=== PATIENT | male | born 1940 | race Two or more races ===

== ENCOUNTER 2017-04-12 09:32 | Emergency (ER) | payer OTHER ==
[2017-04-12 09:40] VITALS: BP 137/82; PULSE 93; TEMP 98; BMI 23.0
--- NOTE | 2017-04-12 10:08 | PDOC ---
Attending Attestation - Resident Resident Name: Abhilash Roberts - HPI HPI: 04/12/17 13:39 Pt presents to the ED complaining of the acute onset of vertigo at 8 am this morning. + nausea and 3 episodes of vomiting. Able to ambulate throughout entire episode. Now completely resolved. - Physicial Exam PE: 04/12/17 13:43 Neurologically intact and ambulatory with a steady gait. - Medical Decision Making 04/12/17 13:43 Pt presents to the ED complaining of tinnitus and vertigo that have both now spontaneously resolved. Neurologically intact. Very low suspicion for central vertigo, given tinitus, and normal neurologic exam. Will discharge home with rx for meclizine.
[2017-04-12 11:49] LABS: BASOPHIL 0.2 % (0-2.0); MCH 31.3 pg (25.7-33.7); MCHC 33.7 g/dl (32.0-35.9); MEAN CELL VOLUME 92.8 fl (80-96); MEAN PLT VOLUME 8.4 fl (7.5-11.1); NEUTROPHILS 90.7 % (42.8-82.8); PLATELET COUNT 183 K/MM3 (134-434); RDW 13.6 % (11.9-15.9); WHITE BLOOD COUNT 11.6 K/mm3 (4.0-10.0)
[2017-04-12 12:22] LABS: ALBUMIN 4.1 g/dl (3.4-5.0); ANION GAP 5 (8-16); CALCIUM 9.1 mg/dL (8.5-10.1); CO2 31 mmol/L (21-32); CREATININE 0.7 mg/dL (0.7-1.3); GLUCOSE,RANDOM 119 mg/dL (74-106); SGOT/AST 21 U/L (15-37); SGPT/ALT 27 U/L (12-78)
--- NOTE | 2017-04-12 12:23 | PDOC ---
History of Present Illness - General Chief Complaint: Lightheaded Stated Complaint: vertigo VOMITING Time Seen by Provider: 04/12/17 09:56 - History of Present Illness Initial Comments: 04/12/17 11:59 Mr. Cheema is a 76 yo male with h/o A-fib who presents with dizziness. He reports that this AM he woke up in bed and experienced an episode of vertigo with the ceiling spinning. He stepped out of bed and felt off balance. He reports that dizziness was sudden in onset, and lasted 2-3 hours. Since this morning he has vomited four times and denies blood in emesis. He has experienced tinnitus in left ear for 2 weeks duration, with an increase in intensity for past 2 days. He denies fevers/chills, chest pain, SOB, constipation/diarrhea, abdominal pain, weakness, LOC, urinary complaints, hearing loss. Past History - Past Medical History Allergies/Adverse Reactions: Allergies Allergy/AdvReac Type Severity Reaction Status Date / Time No Known Allergies Allergy Verified 04/12/17 09:36 Home Medications: Ambulatory Orders Diltiazem HCl [Cartia Xt] 120 mg PO DAILY 04/12/17 Meclizine HCl [Antivert -] 25 mg PO DAILY #30 tablet 04/12/17 Rivaroxaban [Xarelto] 1 each PO DAILY 04/12/17 Cardiac Disorders: Yes (? a.fib) - Psycho/Social/Smoking Cessation Hx Anxiety: No Suicidal Ideation: No Smoking History: Never smoked Have you smoked in the past 12 months: No Information on smoking cessation initiated: No Hx Alcohol Use: No Drug/Substance Use Hx: No Substance Use Type: None Review of Systems - Review of Systems Comments:: 04/12/17 13:09 GENERAL/CONSTITUTIONAL: No fever or chills. No weakness. HEAD, EYES, EARS, NOSE AND THROAT: No change in vision. No ear pain or discharge. No sore throat. CARDIOVASCULAR: No chest pain or shortness of breath RESPIRATORY: No cough, wheezing, or hemoptysis. GASTROINTESTINAL: + Nausea/vomitting, diarrhea or constipation. GENITOURINARY: No dysuria, frequency, or change in urination. MUSCULOSKELETAL: No joint or muscle swelling or pain. No neck or back pain. SKIN: No rash NEUROLOGIC: + dizziness. No headache, vertigo, loss of consciousness, or change in strength/sensation. ENDOCRINE: No increased thirst. No abnormal weight change HEMATOLOGIC/LYMPHATIC: No anemia, easy bleeding, or history of blood clots. ALLERGIC/IMMUNOLOGIC: No hives or skin allergy. *Physical Exam - Vital Signs Last Vital Signs Temp Pulse Resp BP Pulse Ox 98.0 F 93 H 18 137/82 100 04/12/17 09:38 04/12/17 09:38 04/12/17 09:38 04/12/17 09:38 04/12/17 09:38 - Physical Exam Comments: 04/12/17 13:10 GENERAL: Awake, alert, and fully oriented, in no acute distress HEAD: No signs of trauma, normocephalic, atraumatic EYES: PERRLA, EOMI, sclera anicteric, conjunctiva clear ENT: Left tympanic membrane without effusion, erythema, or bulging. Right tympanic membrane difficult to visualize d/t cerumen impaction. Auricles normal inspection, hearing grossly normal, nares patent, oropharynx clear without exudates. Moist mucosa NECK: Normal ROM, supple, no lymphadenopathy, JVD, or masses LUNGS: No distress, speaks full sentences, clear to auscultation bilaterally HEART: Irregular rhythm, normal rate, normal S1 and S2, no murmurs, rubs or gallops, peripheral pulses normal and equal bilaterally. ABDOMEN: Soft, nontender, normoactive bowel sounds. No guarding, no rebound. No masses EXTREMITIES: Normal inspection, Normal range of motion, no edema. No clubbing or cyanosis. NEUROLOGICAL: Normal CY, absent dysmetria on finger to nose and heel to duong. Cranial nerves II through XII grossly intact. Normal speech, normal tandem gait with absent signs of ataxia, no focal sensorimotor deficits SKIN: Warm, Dry, normal turgor, no rashes or lesions noted. ED Treatment Course - LABORATORY CBC & Chemistry Diagram: 04/12/17 11:40 04/12/17 11:40 - ADDITIONAL ORDERS Additional order review: 04/12/17 11:40 RBC 4.75 MCV 92.8 MCHC 33.7 RDW 13.6 MPV 8.4 Neutrophils % 90.7 H Lymphocytes % 7.0 L Monocytes % 2.1 L Eosinophils % 0.0 Basophils % 0.2 Medical Decision Making - Medical Decision Making 04/12/17 13:14 Mr. Cheema is a 76 yo male with h/o Afib who presents with dizziness. There is high suspicion of BPPV d/t positional nature of symptoms. Vertigo is most likely peripheral d/t sudden onset, and associated tinnitus. There is low suspicion for CVA; pt.lacks neurological deficits. No evidence of acute otitis media on physical exam. Pt. denies hearing loss; low suspicion for menieres disease. ED Course: CBC, CMP EKG Meclizine 25 mg *DC/Admit/Observation/Transfer Diagnosis at time of Disposition: BPPV (benign paroxysmal positional vertigo) Qualifiers: Laterality: unspecified laterality Qualified Code(s): H81.10 - Benign paroxysmal vertigo, unspecified ear - Discharge Dispostion Admit: No - Prescriptions Prescriptions: Meclizine HCl [Antivert -] 25 mg PO DAILY #30 tablet - Referrals Referrals: Antonio Abdalla MD [Primary Care Provider] - - Patient Instructions Printed Discharge Instructions: Benign Paroxysmal Positional Vertigo Additional Instructions: Take over the counter DEBROX Drops to disimpact the earwax in your ears. Thank you Mr. Cheema for being a patient patient. 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 - Attestations Physician Attestion: 04/12/17 13:32 I, Dr. Abhilash Roberts, attest that this document has been prepared under my direction and personally reviewed by me in its entirety. I further attest, that it accurately reflects all work, treatment, procedures and medical decision -making performed by me.
[2017-04-12 12:24] LABS: ALK PHOS 110 U/L (45-117); BILIRUBIN,TOTAL 0.8 mg/dL (0.2-1.0); TOT PROT 7.2 g/dl (6.4-8.2)
[2017-04-12] MEDS ORDERED: MECLIZINE HCL 25 MG TABLET (FP) PO ONE (12:48)
[2017-04-12] MEDS ORDERED: MECLIZINE HCL 25 MG TABLET (FP) ONE (12:59)
== END 2017-04-12 15:09 | disposition home or self-care (01) ==
LOC: JER 09:32
DX: H81.10 Benign paroxysmal vertigo, unspecified ear (principal); I48.91 Unspecified atrial fibrillation; Z79.01 Long term (current) use of anticoagulants
CPT/HCPCS: 36415; 80053; 85025; 99282-25

== ENCOUNTER 2020-04-01 17:26 | Emergency (ER) | payer OTHER ==
--- NOTE | 2020-04-01 17:46 | PDOC ---
Rapid Medical Evaluation Time Seen by Provider: 04/01/20 17:39 Medical Evaluation: Allergies Allergy/AdvReac Type Severity Reaction Status Date / Time No Known Allergies Allergy Verified 04/15/18 19:19 04/01/20 17:44 I performed a brief in-person evaluation of this patient. Pt is a 79 y/o male who presents to the ED with feeling weak today and having increased sweating. Pt denies any sob, cp, n/v/d/c. The patient has a h/o of Afib and is on xarelto and Diltiazem. Pertinent physical exam findings: speaking in full and complete sentences, nontoxic, no respiratory distress I have ordered the following: labs, ekg, cxr Patient to proceed to ED for further evaluation. Discharge Disposition - Diagnosis Weakness - Referrals - Patient Instructions - Post Discharge Activity
[2020-04-01 17:49] VITALS: TEMP 98; BMI 23.3
[2020-04-01 18:19] LABS: BASO % 0.5 % (0-2.0); EOS % 0.2 % (0-4.5); HEMATOCRIT 41.6 % (35.4-49); HEMOGLOBIN 13.9 GM/dL (11.7-16.9); LYMPH % 30.9 % (8-40); MCH 31.3 pg (25.7-33.7); MCHC 33.5 g/dl (32.0-35.9); MEAN CELL VOLUME 93.4 fl (80-96); MEAN PLT VOLUME 8.2 fl (7.5-11.1); NEUT % 55.4 % (42.8-82.8); PLATELET COUNT 162 K/MM3 (134-434); RBC 4.45 M/mm3 (4.00-5.60); RDW 13.5 % (11.9-15.9); WHITE BLOOD COUNT 3.6 K/mm3 (4.0-10.0)
[2020-04-01 18:32] LABS: INR 1.14 (0.83-1.09); PROTHROMBIN TIME (PATIENT) 13.5 SEC (9.7-13.0)
[2020-04-01 18:48] LABS: ALBUMIN 3.8 g/dl (3.4-5.0); ALK PHOS 96 U/L (45-117); ANION GAP 4 MMOL/L (8-16); BILIRUBIN,TOTAL 0.4 mg/dL (0.2-1); BLOOD UREA NITROGEN 22.3 mg/dL (7-18); CALCIUM 8.5 mg/dL (8.5-10.1); CHLORIDE 107 mmol/L (98-107); CO2 28 mmol/L (21-32); CREATININE 0.8 mg/dL (0.55-1.3); GLUCOSE,RANDOM 101 mg/dL (74-106); MAGNESIUM 2.3 mg/dL (1.8-2.4); POTASSIUM 4.8 mmol/L (3.5-5.1); SGOT/AST 29 U/L (15-37); SGPT/ALT 30 U/L (13-61); SODIUM 139 mmol/L (136-145); TOT PROT 6.6 g/dl (6.4-8.2)
--- NOTE | 2020-04-01 19:12 | PDOC ---
Attending Attestation - Resident Resident Name: JuanjoseHectorLisa - ED Attending Attestation I have performed the following: I have examined & evaluated the patient, The case was reviewed & discussed with the resident, I agree w/resident's findings & plan - HPI HPI: 04/01/20 19:59 Pt comes with 2 days of feeling unwell. He is worried that he has COVID. 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 [facility] No fam hx of disease. Pt seems very healthy. He is complaint with all his heart meds. He reports no N/V/D/dysuria. No fever or chills. No cough. Just weakness. Pt worked today and it was 90 degrees approachin 100F and humid today. Drank only OJ - Physicial Exam PE: 04/01/20 20:02 Normal exam Agree with resident - Medical Decision Making 04/01/20 20:02 Pt admits that he has a component of anxiety and that for this reason he is tachycardic. He also has had very little to eat and drink in the past 2 days. 04/01/20 21:22 First set of labs normal; rapid afib on initial EKG. HR after hydration is 80s. Pt will get a 2nd cardiac enzyme as well as UA. Both are pending; if normal he is ready for discharge 04/01/20 21:32 Pt's UA is normal Pt awaiting repeat trop. 04/01/20 22:44 2nd card enzyme normal; pt is ready for d/c home Discharge - Discharge Information Problems reviewed: Yes Clinical Impression/Diagnosis: Weakness, Dehydration Condition: Improved Disposition: HOME - Follow up/Referral Referrals: Wes Lira PA [Primary Care Provider] - - Patient Discharge Instructions Patient Printed Discharge Instructions: DI for Dehydration -- Adult Additional Instructions: You came in to the ED today because of "weakness" and "sweating." You were evaluated with a physical exam, an EKG, labs, and a CXR. Troponin, labs, EKG were normal. Follow up with your invoice clerk, or with our cardiology referral. Return to the ER immediately if you experience chest pain, SOB, lightheadedness, nausea, vomiting, or any other concerning symptoms. - Post Discharge Activity
--- NOTE | 2020-04-01 19:13 | PDOC ---
History of Present Illness <Nargis Singh - Last Filed: 04/01/20 22:45> - General History Source: Patient Exam Limitations: No Limitations - History of Present Illness Initial Comments: HPI: Patient is a 79 y/o with a PMH of AFIB presenting due to weakness and increased sweating that began around 11 a.m. 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 He states that he continued working the rest of the day. He denied any accompanying chest pain, palpitations, or SOB at the time. When he went home his told him he should come into the ED to be tested for COVID. He has no sick contacts. Additionally, he has not had anything to eat other than orange juice all day. Patient states that he feels better at this time and is not experiencing chest pain, SOB, palpitations. ROS: (+): Weakness (-): Chest pain, SOB, palpitations, blurry vision, dizziness, fever, chills, nausea, vomiting, cough, congestion, myalgias. PMH: Afib PSH: Denied Meds: Xarelto, Diltiazem PE: General: Patient is AAO X 3, in no acute distress Head: No signs of trauma, normocephalic Eyes: PERRL Lungs: No distress, speaks in full sentences, clear to auscultation bilaterally Cardiac: Afib. No murmurs appreciated. Neurological: CN 2-10 intact. Normal speech, no focal sensorimotor defecits. Extremities: No edema, no cyanosis. MDM: This is a 79 y/o male presenting to the ED due to weakness and sweating which occurred earlier this morning. Due to history of Afib and age, cardiac profile was ordered. Troponin came back normal. EKG showed Afib with RVR, and he was tachy at 103. He was given 1L of normal saline which brought him down to 85. A repeat troponin was also negative. HEART score of 2. The patient has a senior buyer who he last saw one year ago. He will follow up with him upon discharge. 04/01/20 22:51 04/01/20 23:15 <Lisa Sow - Last Filed: 04/01/20 23:18> - General Chief Complaint: Weakness Stated Complaint: COUGH/WEAKNESS Time Seen by Provider: 04/01/20 17:39 Past History <Nargis Singh - Last Filed: 04/01/20 22:45> - Medical History Cardiac Disorders: Yes (a.fib) COPD: No - Psycho-Social/Smoking History Smoking History: Never smoked Have you smoked in the past 12 months: No - Substance Abuse Hx (Audit-C & DAST Scrn) How often the patient has a drink containing alcohol: Never Score: In Men: 4 or > Positive; In Women: 3 or > Positive: 0 Screen Result (Pos requires Nsg. Audit-10AR): Negative <Lisa Sow - Last Filed: 04/01/20 23:18> - Medical History Allergies/Adverse Reactions: Allergies Allergy/AdvReac Type Severity Reaction Status Date / Time No Known Allergies Allergy Verified 04/01/20 17:45 Home Medications: Ambulatory Orders Diltiazem [Cardizem -] 0 mg PO HS 04/01/20 Rivaroxaban [Xarelto -] 20 mg PO DAILY 04/01/20 *Physical Exam - Vital Signs Last Vital Signs Temp Pulse Resp BP Pulse Ox 98 F 95 H 18 133/90 99 04/01/20 17:46 04/01/20 22:15 04/01/20 22:15 04/01/20 22:15 04/01/20 22:15 <Nargis Singh - Last Filed: 04/01/20 22:45> - Vital Signs Last Vital Signs Temp Pulse Resp BP Pulse Ox 98 F 122 H 18 119/87 99 04/01/20 17:46 04/01/20 17:46 04/01/20 17:46 04/01/20 17:46 04/01/20 17:50 <Lisa Sow - Last Filed: 04/01/20 23:18> Heart Score/ECG Review - History History: Slightly suspicious - Electrocardiogram EKG: Normal - Age Age: >/= 65 - Risk Factors Based on the list above the patient has:: No risk factors known - Troponin Troponin: </= normal limit - Score Heart Score - Total: 2 - ECG Intrepretation Comment:: Atrial fibrillation with RVR, Low voltage QRS Rate 106, QRS 72ms, QT/QTc 338/448 04/01/20 20:15 <Lisa Sow - Last Filed: 04/01/20 23:18> ED Treatment Course - LABORATORY CBC & Chemistry Diagram: 04/01/20 18:10 04/01/20 18:10 - ADDITIONAL ORDERS Additional order review: Laboratory Results 04/01/20 04/01/20 04/01/20 21:45 20:00 18:10 PT with INR INR PTT (Actin FS) Sodium 139 Potassium 4.8 Chloride 107 Carbon Dioxide 28 Anion Gap 4 L BUN 22.3 H Creatinine 0.8 Est GFR (CKD-EPI)AfAm 99.87 Est GFR (CKD-EPI)NonAf 86.17 Random Glucose 101 Calcium 8.5 Magnesium 2.3 Total Bilirubin 0.4 AST 29 ALT 30 Alkaline Phosphatase 96 Creatine Kinase 160 Creatine Kinase Index 1.6 CK-MB (CK-2) 2.6 Troponin I < 0.02 < 0.02 Total Protein 6.6 Albumin 3.8 Urine Color Yellow Urine Appearance Clear Urine pH 7.0 Ur Specific [place] 1.024 Urine Protein Negative Urine Glucose (UA) Negative Urine Ketones Trace H Urine Blood Negative Urine Nitrite Negative Urine Bilirubin Negative Urine Urobilinogen 1.0 Ur Leukocyte Esterase Negative 04/01/20 18:10 PT with INR 13.50 H INR 1.14 H PTT (Actin FS) 33.0 Sodium Potassium Chloride Carbon Dioxide Anion Gap BUN Creatinine Est GFR (CKD-EPI)AfAm Est GFR (CKD-EPI)NonAf Random Glucose Calcium Magnesium Total Bilirubin AST ALT Alkaline Phosphatase Creatine Kinase Creatine Kinase Index CK-MB (CK-2) Troponin I Total Protein Albumin Urine Color Urine Appearance Urine pH Ur Specific [place] Urine Protein Urine Glucose (UA) Urine Ketones Urine Blood Urine Nitrite Urine Bilirubin Urine Urobilinogen Ur Leukocyte Esterase 04/01/20 18:10 RBC 4.45 MCV 93.4 MCHC 33.5 RDW 13.5 MPV 8.2 Neutrophils % 55.4 D Lymphocytes % 30.9 D Monocytes % 13.0 H D Eosinophils % 0.2 D Basophils % 0.5 - Medications Given in the ED: ED Medications Discontinued Medications Generic Name Dose Route Start Last Admin Trade Name Freq PRN Reason Stop Dose Admin Sodium Chloride 500 mls @ 500 mls/hr 04/01/20 19:59 04/01/20 20:26 Normal Saline - IV 04/01/20 20:58 500 mls/hr ASDIR STA Administration <Nargis Singh - Last Filed: 04/01/20 22:45> - LABORATORY CBC & Chemistry Diagram: 04/01/20 18:10 04/01/20 18:10 - ADDITIONAL ORDERS Additional order review: Laboratory Results 04/01/20 04/01/20 18:10 18:10 PT with INR 13.50 H INR 1.14 H PTT (Actin FS) 33.0 Sodium 139 Potassium 4.8 Chloride 107 Carbon Dioxide 28 Anion Gap 4 L BUN 22.3 H Creatinine 0.8 Est GFR (CKD-EPI)AfAm 99.87 Est GFR (CKD-EPI)NonAf 86.17 Random Glucose 101 Calcium 8.5 Magnesium 2.3 Total Bilirubin 0.4 AST 29 ALT 30 Alkaline Phosphatase 96 Creatine Kinase 160 Creatine Kinase Index 1.6 CK-MB (CK-2) 2.6 Troponin I < 0.02 Total Protein 6.6 Albumin 3.8 04/01/20 18:10 RBC 4.45 MCV 93.4 MCHC 33.5 RDW 13.5 MPV 8.2 Neutrophils % 55.4 D Lymphocytes % 30.9 D Monocytes % 13.0 H D Eosinophils % 0.2 D Basophils % 0.5 <Lisa Sow - Last Filed: 04/01/20 23:18> Discharge - Discharge Information Problems reviewed: Yes - Admission No <Nargis Singh - Last Filed: 04/01/20 22:45> <Lisa Sow - Last Filed: 04/01/20 23:18> - Discharge Information Clinical Impression/Diagnosis: Weakness, Dehydration Condition: Improved Disposition: HOME - Follow up/Referral Referrals: Wes Lira PA [Primary Care Provider] - - Patient Discharge Instructions Patient Printed Discharge Instructions: DI for Dehydration -- Adult Additional Instructions: You came in to the ED today because of "weakness" and "sweating." You were evaluated with a physical exam, an EKG, labs, and a CXR. Troponin, labs, EKG were normal. Follow up with your senior buyer, or with our cardiology referral. Return to the ER immediately if you experience chest pain, SOB, lightheadedness, nausea, vomiting, or any other concerning symptoms. - Post Discharge Activity
[2020-04-01] MEDS ORDERED: SODIUM CHLORIDE 500 ML IV STA (19:59)
[2020-04-01 21:20] LABS: URINE APPEARANCE CLEAR; URINE BILIRUBIN NEGATIVE (NEGATIVE); URINE COLOR YELLOW; URINE GLUCOSE (UA) NEGATIVE (NEGATIVE); URINE KETONE TRACE (NEGATIVE); URINE LEUK ESTERASE NEGATIVE (NEGATIVE); URINE NITRITE NEGATIVE (NEGATIVE); URINE PROTEIN NEGATIVE (NEGATIVE)
[2020-04-01 22:18] VITALS: PULSE 95
[2020-04-01 22:19] VITALS: BP 133/90
--- NOTE | 2020-04-03 14:11 | EKG ---
Test Reason : Blood Pressure : / mmHG Vent. Rate : 106 BPM Atrial Rate : 098 BPM P-R Int : 000 ms QRS Dur : 072 ms QT Int : 338 ms P-R-T Axes : 000 013 024 degrees QTc Int : 448 ms ATRIAL FIBRILLATION WITH RAPID VENTRICULAR RESPONSE LOW VOLTAGE QRS ABNORMAL ECG WHEN COMPARED WITH ECG OF 01-APR-2020 18:20, NO SIGNIFICANT CHANGE WAS FOUND Confirmed by KAIN ALEMAN MD ([id number]) on 04/03/2020 2:11:03 PM Referred By: Confirmed By:KAIN ALEMAN MD
--- NOTE | 2020-04-03 14:14 | EKG ---
Test Reason : Blood Pressure : / mmHG Vent. Rate : 093 BPM Atrial Rate : 092 BPM P-R Int : 000 ms QRS Dur : 072 ms QT Int : 336 ms P-R-T Axes : 000 -06 015 degrees QTc Int : 417 ms ATRIAL FIBRILLATION LOW VOLTAGE QRS ABNORMAL ECG NO PREVIOUS ECGS AVAILABLE Confirmed by KAIN ALEMAN MD ([id number]) on 04/03/2020 2:14:06 PM Referred By: Confirmed By:KAIN ALEMAN MD
== END 2020-04-01 22:55 | disposition home or self-care (01) ==
LOC: JER 17:26
PROC: 3E0337Z Introduction of Electrolytic and Water Balance Substance into Peripheral Vein, Percutaneous Approach (ICD-10-PCS; principal; 2020-04-01)
DX: R53.1 Weakness (principal); E86.0 Dehydration
CPT/HCPCS: 36415; 71046-TC-FY; 80053; 81003; 82550; 82553; 83735; 84484; 85025; 85610; 85730; 87086; 93005; 93010; 99285-25

== ENCOUNTER 2022-04-02 17:16 | Inpatient (IN) | payer OTHER ==
[2022-04-02] MEDS ORDERED: SODIUM CHLORIDE 0.9% 500 ML INFUS.BAG IV ONE (18:00)
[2022-04-02] MEDS ORDERED: ACETAMINOPHEN 1000 MG/100 ML BAG IVPB ONE (18:00)
[2022-04-02] MEDS ORDERED: ACETAMINOPHEN INJECTION 100 ML IVPB ONE ×2 (18:08→23:22)
[2022-04-02] MEDS ORDERED: MAG HYDROX/AL HYDROX/SIMETH 30 ML UNIT-DOSE CUP PO ONE (18:26)
[2022-04-02] MEDS ORDERED: FAMOTIDINE 20 MG/50 ML IVPB 20 MG/50 ML MG IVPB ONE ×2 (18:26→18:37)
[2022-04-02] MEDS ORDERED: MAG HYDROX/AL HYDROX/SIMETH 30 ML UNIT-DOSE CUP ONE (18:37)
[2022-04-02 18:51] LABS: BASO % 0.2 % (0-2.0); EOS % 0.8 % (0-4.5); HEMATOCRIT 40.5 % (35.4-49); HEMOGLOBIN 13.7 GM/dL (11.7-16.9); LYMPH % 20.1 % (8-40); MCH 31.2 pg (25.7-33.7); MCHC 33.9 g/dl (32.0-35.9); MEAN CELL VOLUME 91.9 fl (80-96); MEAN PLT VOLUME 8.1 fl (7.5-11.1); MONO % 6.3 % (3.8-10.2); NEUT % 72.6 % (42.8-82.8); PLATELET COUNT 211 10^3/uL (134-434); RDW 13.4 % (11.9-15.9); WHITE BLOOD COUNT 9.5 K/mm3 (4.0-10.0)
[2022-04-02 18:53] LABS: CALCIUM 8.8 mg/dL (8.5-10.1)
[2022-04-02 18:54] LABS: ALBUMIN 3.6 g/dl (3.4-5.0); BLOOD UREA NITROGEN 25.1 mg/dL (7-18)
[2022-04-02 18:57] LABS: CREATININE 0.8 mg/dL (0.55-1.3)
[2022-04-02 18:58] LABS: BILIRUBIN,TOTAL 0.4 mg/dL (0.2-1); TOT PROT 6.4 g/dl (6.4-8.2)
[2022-04-02 19:30] LABS: VENOUS BASE EXCESS 0.2 mmol/L (-2-2); VENOUS O2 SATURATION 59.4 % (70-80); VENOUS PCO2 49.5 mmHg (38-52); VENOUS PH 7.348 (7.310-7.410)
[2022-04-02 20:44] LABS: EPI CELLS 0 /uL (0-25.1); HYALINE CASTS 0 /uL (0-3.1); PH,URINE 7.5 (5.0-8.0); URINE APPEARANCE CLEAR; URINE BACTERIA 0 /uL (0-1359); URINE BILIRUBIN NEGATIVE (NEGATIVE); URINE COLOR YELLOW; URINE GLUCOSE (UA) NEGATIVE (NEGATIVE); URINE KETONE NEGATIVE (NEGATIVE); URINE LEUK ESTERASE NEGATIVE (NEGATIVE); URINE NITRITE NEGATIVE (NEGATIVE); URINE PROTEIN NEGATIVE (NEGATIVE); URINE RBC 38 /uL (0-23.9); URINE UROBILINOGEN 0.2 mg/dL (0.2-1.0); URINE WBC 1 /uL (0-25.8)
[2022-04-02] MEDS: ACETAMINOPHEN 1000 MG/100 ML BAG IVPB PRN (23:27)
[2022-04-02] MEDS ORDERED: FAMOTIDINE 20 MG TABLET PO PRN (23:39)
[2022-04-03] MEDS ORDERED: POLYETHYLENE GLYCOL (HEALTHYLAX) 3350 17 GM PACKET ONE (00:14)
[2022-04-03] MEDS: POLYETHYLENE GLYCOL (HEALTHYLAX) 3350 17 GM PACKET PO SCH ×4 (00:19→22:09)
[2022-04-03] MEDS: ACETAMINOPHEN 1000 MG/100 ML BAG IVPB PRN ×2 (06:04→16:53)
[2022-04-03] MEDS: INSULIN SLIDING SCALE (NOVOLOG) 1 VIAL SQ SCH ×4 (06:05→22:09)
[2022-04-03 06:45] VITALS: BMI 23.1
[2022-04-03 09:10] LABS: BASO % 0.2 % (0-2.0); EOS % 0.1 % (0-4.5); HEMATOCRIT 41.1 % (35.4-49); HEMOGLOBIN 14.2 GM/dL (11.7-16.9); MCH 31.8 pg (25.7-33.7); MCHC 34.6 g/dl (32.0-35.9); MEAN PLT VOLUME 7.9 fl (7.5-11.1); MONO % 6.1 % (3.8-10.2); NEUT % 80.6 % (42.8-82.8); PLATELET COUNT 215 10^3/uL (134-434); RBC 4.47 M/mm3 (4.00-5.60); RDW 13.4 % (11.9-15.9); WHITE BLOOD COUNT 10.8 K/mm3 (4.0-10.0)
[2022-04-03 09:29] LABS: CALCIUM 8.8 mg/dL (8.5-10.1)
[2022-04-03 09:30] LABS: ALBUMIN 3.6 g/dl (3.4-5.0); BLOOD UREA NITROGEN 13.5 mg/dL (7-18); MAGNESIUM 2.3 mg/dL (1.8-2.4)
[2022-04-03 09:33] LABS: CREATININE 0.7 mg/dL (0.55-1.3); PHOSPHOROUS 2.9 mg/dL (2.5-4.9)
[2022-04-03 09:34] LABS: TOT PROT 6.5 g/dl (6.4-8.2)
[2022-04-03 09:35] LABS: BILIRUBIN,TOTAL 1.2 mg/dL (0.2-1)
[2022-04-03] MEDS ORDERED: RIVAROXABAN 20 MG TABLET PO SCH (18:00)
[2022-04-04] MEDS: INSULIN SLIDING SCALE (NOVOLOG) 1 VIAL SQ SCH ×4 (06:32→21:27)
[2022-04-04] MEDS: POLYETHYLENE GLYCOL (HEALTHYLAX) 3350 17 GM PACKET PO SCH ×3 (06:33→21:27)
[2022-04-04 09:24] LABS: BASO % 0.1 % (0-2.0); EOS % 0.1 % (0-4.5); HEMATOCRIT 40.7 % (35.4-49); HEMOGLOBIN 13.9 GM/dL (11.7-16.9); LYMPH % 10.8 % (8-40); MCH 31.2 pg (25.7-33.7); MCHC 34.1 g/dl (32.0-35.9); MEAN CELL VOLUME 91.7 fl (80-96); MONO % 7.7 % (3.8-10.2); NEUT % 81.3 % (42.8-82.8); PLATELET COUNT 191 10^3/uL (134-434); RBC 4.44 M/mm3 (4.00-5.60); RDW 13.2 % (11.9-15.9); WHITE BLOOD COUNT 13.2 K/mm3 (4.0-10.0)
[2022-04-04 09:48] LABS: BLOOD UREA NITROGEN 12.3 mg/dL (7-18); CALCIUM 8.7 mg/dL (8.5-10.1)
[2022-04-04 09:52] LABS: CREATININE 0.9 mg/dL (0.55-1.3)
[2022-04-04] MEDS ORDERED: INSULIN (LEVEMIR) 100 UNITS/ML UNITS SQ ONE (09:57)
[2022-04-04] MEDS ORDERED: PEG 3350/NA SULF BICARB CL/KCL 4000 ML SOLN.RECON PO ONE (10:00)
[2022-04-04] MEDS: FAMOTIDINE 20 MG TABLET PO SCH ×2 (10:53→21:27)
[2022-04-04] MEDS ORDERED: INSULIN (NOVOLOG) ASPART 100 UNITS/ML 10ML VIAL ONE (16:50)
[2022-04-04] MEDS: FINASTERIDE 5 MG TABLET (FP) PO SCH (16:57)
[2022-04-04] MEDS ORDERED: BISACODYL 5 MG TABLET.DR (FP) PO ONE (20:00)
[2022-04-04] MEDS: TAMSULOSIN HCL 0.4 MG CAP PO SCH (21:27)
[2022-04-05] MEDS: POLYETHYLENE GLYCOL (HEALTHYLAX) 3350 17 GM PACKET PO SCH ×3 (06:18→22:02)
[2022-04-05] MEDS: INSULIN SLIDING SCALE (NOVOLOG) 1 VIAL SQ SCH ×4 (06:37→22:00)
[2022-04-05] MEDS: FAMOTIDINE 20 MG TABLET PO SCH ×3 (08:42→22:02)
[2022-04-05] MEDS: TAMSULOSIN HCL 0.4 MG CAP PO SCH ×3 (08:42→22:02)
[2022-04-05] MEDS: FINASTERIDE 5 MG TABLET (FP) PO SCH ×2 (08:43→09:55)
[2022-04-05 09:00] LABS: INR 1.12 (0.83-1.09); PROTHROMBIN TIME (PATIENT) 12.9 SEC (9.7-13.0)
[2022-04-05 09:03] LABS: BASO % 0.2 % (0-2.0); EOS % 0.1 % (0-4.5); HEMATOCRIT 41.4 % (35.4-49); HEMOGLOBIN 13.9 GM/dL (11.7-16.9); LYMPH % 11.8 % (8-40); MCH 31.3 pg (25.7-33.7); MCHC 33.7 g/dl (32.0-35.9); MEAN CELL VOLUME 92.9 fl (80-96); MEAN PLT VOLUME 8.6 fl (7.5-11.1); NEUT % 78.9 % (42.8-82.8); PLATELET COUNT 193 10^3/uL (134-434); RBC 4.46 M/mm3 (4.00-5.60); RDW 13.6 % (11.9-15.9); WHITE BLOOD COUNT 12.5 K/mm3 (4.0-10.0)
[2022-04-05 09:14] LABS: ALBUMIN 3.3 g/dl (3.4-5.0); BLOOD UREA NITROGEN 19.6 mg/dL (7-18); MAGNESIUM 2.3 mg/dL (1.8-2.4)
[2022-04-05 09:16] LABS: BILIRUBIN,TOTAL 1.6 mg/dL (0.2-1); TOT PROT 6.5 g/dl (6.4-8.2)
[2022-04-05] MEDS ORDERED: ETOMIDATE 20 MG/10 ML AMPUL IVPUSH ONE (10:14)
[2022-04-05] MEDS: RIVAROXABAN 20 MG TABLET PO SCH (12:40)
[2022-04-05 14:11] LABS: EPI CELLS 6 /uL (0-25.1); HYALINE CASTS 22 /uL (0-3.1); PH,URINE 5.5 (5.0-8.0); URINE APPEARANCE CLOUDY; URINE BACTERIA 10 /uL (0-1359); URINE BILIRUBIN 1+ (NEGATIVE); URINE COLOR ORANGE; URINE GLUCOSE (UA) NEGATIVE (NEGATIVE); URINE KETONE 2+ (NEGATIVE); URINE LEUK ESTERASE 2+ (NEGATIVE); URINE NITRITE NEGATIVE (NEGATIVE); URINE PROTEIN 2+ (NEGATIVE); URINE RBC 3006 /uL (0-23.9); URINE UROBILINOGEN 0.2 mg/dL (0.2-1.0); URINE WBC 613 /uL (0-25.8)
[2022-04-06] MEDS: POLYETHYLENE GLYCOL (HEALTHYLAX) 3350 17 GM PACKET PO SCH ×2 (05:25→14:57)
[2022-04-06] MEDS: INSULIN SLIDING SCALE (NOVOLOG) 1 VIAL SQ SCH ×3 (06:38→17:17)
[2022-04-06] MEDS: FAMOTIDINE 20 MG TABLET PO SCH (10:11)
[2022-04-06] MEDS: FINASTERIDE 5 MG TABLET (FP) PO SCH (10:11)
[2022-04-06] MEDS: TAMSULOSIN HCL 0.4 MG CAP PO SCH (10:11)
[2022-04-06 10:17] VITALS: PULSE 110
[2022-04-06 10:56] LABS: BASO % 0.1 % (0-2.0); EOS % 0.7 % (0-4.5); HEMATOCRIT 33.5 % (35.4-49); HEMOGLOBIN 11.6 GM/dL (11.7-16.9); LYMPH % 11.3 % (8-40); MCH 31.7 pg (25.7-33.7); MCHC 34.5 g/dl (32.0-35.9); MEAN CELL VOLUME 91.9 fl (80-96); MEAN PLT VOLUME 8.1 fl (7.5-11.1); MONO % 9.1 % (3.8-10.2); NEUT % 78.8 % (42.8-82.8); PLATELET COUNT 191 10^3/uL (134-434); RBC 3.65 M/mm3 (4.00-5.60); RDW 13.7 % (11.9-15.9); WHITE BLOOD COUNT 8.6 K/mm3 (4.0-10.0)
[2022-04-06] MEDS: RIVAROXABAN 20 MG TABLET PO SCH (11:05)
[2022-04-06 11:08] LABS: BLOOD UREA NITROGEN 24.4 mg/dL (7-18); MAGNESIUM 2.1 mg/dL (1.8-2.4)
[2022-04-06 11:11] LABS: CREATININE 0.6 mg/dL (0.55-1.3)
[2022-04-06 11:12] LABS: BILIRUBIN,TOTAL 0.6 mg/dL (0.2-1)
[2022-04-06 11:13] LABS: TOT PROT 5.2 g/dl (6.4-8.2)
[2022-04-06 11:14] LABS: ALBUMIN 2.4 g/dl (3.4-5.0)
[2022-04-06 14:59] VITALS: BP 109/61; TEMP 99.3
== END 2022-04-06 20:09 | disposition home or self-care (01) | DRG 392 ==
LOC: JER 17:16 → JERBED 20:52 → J8W 04-03 03:22
PROVIDERS: ADMIT Internal Medicine; ATTEND Internal Medicine
PROC: 0DB58ZX Excision of Esophagus, Via Natural or Artificial Opening Endoscopic, Diagnostic (ICD-10-PCS; 2022-04-05)
PROC: 0DB98ZX Excision of Duodenum, Via Natural or Artificial Opening Endoscopic, Diagnostic (ICD-10-PCS; 2022-04-05)
PROC: 0DJD8ZZ Inspection of Lower Intestinal Tract, Via Natural or Artificial Opening Endoscopic (ICD-10-PCS; 2022-04-05)
PROC: 0DB78ZX Excision of Stomach, Pylorus, Via Natural or Artificial Opening Endoscopic, Diagnostic (ICD-10-PCS; principal; 2022-04-05 11:00)
DX: K59.00 Constipation, unspecified (principal); N13.30 Unspecified hydronephrosis; N40.0 Benign prostatic hyperplasia without lower urinary tract symptoms; R33.9 Retention of urine, unspecified; R10.9 Unspecified abdominal pain; E11.9 Type 2 diabetes mellitus without complications; I48.91 Unspecified atrial fibrillation; D72.829 Elevated white blood cell count, unspecified; K29.70 Gastritis, unspecified, without bleeding; K57.90 Diverticulosis of intestine, part unspecified, without perforation or abscess without bleeding; K64.8 Other hemorrhoids
CPT/HCPCS: 36415; 71045-TC-FY; 71046-TC-FY; 74174-TC; 74176-TC; 80048; 80053; 81003; 82803; 82962; 83036; 83605; 83690; 83735; 84100; 84153; 84484; 85025; 85610; 87040; 87086; 88305-TC; 93005; 93010; 99285-25; C9803-CS; U0003; U0005

== ENCOUNTER 2023-09-09 08:19 | Emergency (ER) | payer OTHER ==
[2023-09-09 08:49] VITALS: TEMP 97.7; BMI 49.6
[2023-09-09] MEDS ORDERED: ACETAMINOPHEN 325 MG TABLET (FP) ONE (09:51)
[2023-09-09] MEDS ORDERED: guaiFENesin/D-METHORPHAN HB 10 ML UNIT-DOSE CUPS ONE (09:51)
[2023-09-09] MEDS: ACETAMINOPHEN 325 MG TABLET (FP) PO ONE (09:52)
[2023-09-09] MEDS: guaiFENesin 200 MG/10 ML 10 ML UNIT-DOSE CUPS PO ONE (09:52)
[2023-09-09 10:57] VITALS: RESP 16
[2023-09-09] MEDS: SODIUM CHLORIDE 0.9% 500 ML INFUS.BAG IV ONE (11:05)
[2023-09-09 11:14] LABS: BASO % 0.2 % (0-2.0); EOS % 0.1 % (0-4.5); HEMATOCRIT 44.7 % (35.4-49); HEMOGLOBIN 14.9 GM/dL (11.7-16.9); LYMPH % 11.8 % (8-40); MCH 30.7 pg (25.7-33.7); MCHC 33.4 g/dl (32.0-35.9); MEAN CELL VOLUME 91.9 fl (80-96); MEAN PLT VOLUME 7.2 fl (7.5-11.1); MONO % 6.5 % (3.8-10.2); NEUT % 81.4 % (42.8-82.8); PLATELET COUNT 314 10^3/uL (134-434); RBC 4.87 M/mm3 (4.00-5.60); RDW 13.4 % (11.9-15.9); WHITE BLOOD COUNT 10.9 K/mm3 (4.0-10.0)
[2023-09-09] MEDS ORDERED: dilTIAZem HCL 125 MG/25 ML - 25 ML VIAL ONE (11:14)
[2023-09-09] MEDS: dilTIAZem HCL 50 MG/10 ML - 10 ML VIAL IVPUSH ONE (11:19)
[2023-09-09] MEDS ORDERED: dilTIAZem HCL 60 MG TABLET ONE (11:23)
[2023-09-09] MEDS: dilTIAZem HCL 60 MG TABLET PO ONE (11:26)
[2023-09-09 12:05] LABS: ALBUMIN 3.4 g/dl (3.4-5.0); MAGNESIUM 2.3 mg/dL (1.8-2.4)
[2023-09-09 12:06] LABS: BLOOD UREA NITROGEN 33.4 mg/dL (7-18)
[2023-09-09 12:08] LABS: CREATININE 1.1 mg/dL (0.55-1.3)
[2023-09-09 12:10] LABS: BILIRUBIN,TOTAL 0.7 mg/dL (0.2-1); TOT PROT 7.3 g/dl (6.4-8.2)
[2023-09-09 13:06] VITALS: BP 118/80; PULSE 104
[2023-09-09] MEDS ORDERED: AZITHROMYCIN 500 MG TABLET ONE (13:07)
[2023-09-09] MEDS: AZITHROMYCIN 250 MG TABLET PO ONE (13:12)
== END 2023-09-09 13:27 | disposition home or self-care (01) ==
LOC: JER 08:19
PROC: 3E033GC Introduction of Other Therapeutic Substance into Peripheral Vein, Percutaneous Approach (ICD-10-PCS; principal; 2023-09-09)
DX: R09.81 Nasal congestion (principal); R05.9 Cough, unspecified; R19.7 Diarrhea, unspecified; R11.10 Vomiting, unspecified; B97.4 Respiratory syncytial virus as the cause of diseases classified elsewhere; Z86.79 Personal history of other diseases of the circulatory system; Z20.822 Contact with and (suspected) exposure to COVID-19
CPT/HCPCS: 0241U-QW; 36415; 71045-TC-FY; 80053; 82962; 83735; 84443; 84484; 85025; 93005; 93010; 96374; 99285-25

== ENCOUNTER 2024-01-23 10:00 | Emergency (ER) | payer OTHER ==
[2024-01-23 10:07] VITALS: BP 136/73; PULSE 92; RESP 20; TEMP 98.1; BMI 23.8
[2024-01-23] MEDS ORDERED: ACETAMINOPHEN 325 MG TABLET (FP) ONE (11:26)
[2024-01-23] MEDS: ACETAMINOPHEN 325 MG TABLET (FP) PO ONE (11:28)
== END 2024-01-23 12:16 | disposition home or self-care (01) ==
LOC: JERFT 10:00
DX: S99.922A Unspecified injury of left foot, initial encounter (principal); V03.10XA Pedestrian on foot injured in collision with car, pick-up truck or van in traffic accident, initial encounter; Y92.513 Shop (commercial) as the place of occurrence of the external cause
CPT/HCPCS: 73610-TC-LT-FY; 73630-TC-LT; 99283-25

== ENCOUNTER 2024-06-30 08:52 | Emergency (ER) | payer OTHER ==
[2024-06-30 09:11] VITALS: BMI 21.4
[2024-06-30] MEDS: SODIUM CHLORIDE 0.9% 500 ML INFUS.BAG IV ONE (09:35)
[2024-06-30 09:58] LABS: BASO % 0.2 % (0-2.0); EOS % 0.5 % (0-4.5); HEMATOCRIT 40.6 % (35.4-49); HEMOGLOBIN 13.9 GM/dL (11.7-16.9); LYMPH % 15.1 % (8-40); MCH 31.6 pg (25.7-33.7); MCHC 34.2 g/dl (32.0-35.9); MEAN CELL VOLUME 92.5 fl (80-96); MONO % 12.2 % (3.8-10.2); PLATELET COUNT 210 10^3/uL (134-434); RBC 4.39 M/mm3 (4.00-5.60); RDW 14.2 % (11.9-15.9); WHITE BLOOD COUNT 6.9 K/mm3 (4.0-10.0)
[2024-06-30 10:26] LABS: CALCIUM 8.7 mg/dL (8.5-10.1)
[2024-06-30 10:27] LABS: BLOOD UREA NITROGEN 17.7 mg/dL (7-18)
[2024-06-30 10:30] LABS: CREATININE 0.9 mg/dL (0.55-1.3)
[2024-06-30 10:31] LABS: BILIRUBIN,TOTAL 1.3 mg/dL (0.2-1); TOT PROT 5.8 g/dl (6.4-8.2)
[2024-06-30 10:34] LABS: N-TERMINAL BNP 555.3 pg/ml (5-450)
[2024-06-30 12:56] LABS: PH,URINE 6.5 (5.0-8.0); URINE APPEARANCE CLEAR; URINE BILIRUBIN NEGATIVE (NEGATIVE); URINE COLOR YELLOW; URINE GLUCOSE (UA) NEGATIVE (NEGATIVE); URINE KETONE NEGATIVE (NEGATIVE); URINE LEUK ESTERASE NEGATIVE (NEGATIVE); URINE NITRITE NEGATIVE (NEGATIVE); URINE PROTEIN NEGATIVE (NEGATIVE)
[2024-06-30 12:58] LABS: HIV INTERPRETATION NEGATIVE (NEGATIVE)
[2024-06-30 13:34] VITALS: BP 128/65; PULSE 70; RESP 17; TEMP 97.8
== END 2024-06-30 13:30 | disposition home or self-care (01) ==
LOC: JER 08:52
DX: E86.0 Dehydration (principal); R42 Dizziness and giddiness; R55 Syncope and collapse; R53.1 Weakness
CPT/HCPCS: 36415; 71046-TC-FY; 80053; 81003; 83880; 84484; 85025; 86803; 87086; 87389; 93005; 93010; 99285-25

== ENCOUNTER 2024-07-15 13:26 | Observation (INO) | payer OTHER ==
[2024-07-15] MEDS: SODIUM CHLORIDE 1,000 ML IV SCH (15:10)
[2024-07-15 15:16] LABS: BASO % 0.5 % (0-2.0); EOS % 0.2 % (0-4.5); HEMATOCRIT 40.5 % (35.4-49); HEMOGLOBIN 13.8 GM/dL (11.7-16.9); LYMPH % 10.3 % (8-40); MCH 31.4 pg (25.7-33.7); MCHC 34.1 g/dl (32.0-35.9); MEAN CELL VOLUME 92.2 fl (80-96); MEAN PLT VOLUME 7.3 fl (7.5-11.1); MONO % 3.3 % (3.8-10.2); NEUT % 85.7 % (42.8-82.8); PLATELET COUNT 233 10^3/uL (134-434); RBC 4.39 M/mm3 (4.00-5.60); RDW 13.8 % (11.9-15.9); WHITE BLOOD COUNT 6.8 K/mm3 (4.0-10.0)
[2024-07-15 15:41] LABS: ACTIVATED PTT 35.7 SECONDS (25.2-36.5); INR 1.51 (0.83-1.09); PROTHROMBIN TIME (PATIENT) 16.9 SEC (9.7-13.0)
[2024-07-15 15:43] LABS: POTASSIUM 4.6 mmol/L (3.5-5.1)
[2024-07-15 15:46] LABS: ALBUMIN 3.5 g/dl (3.4-5.0); CALCIUM 8.8 mg/dL (8.5-10.1)
[2024-07-15 15:48] LABS: BLOOD UREA NITROGEN 22.2 mg/dL (7-18)
[2024-07-15 15:50] LABS: CREATININE 0.8 mg/dL (0.55-1.3)
[2024-07-15 15:51] LABS: TOT PROT 6.5 g/dl (6.4-8.2)
[2024-07-15 15:52] LABS: BILIRUBIN,TOTAL 0.7 mg/dL (0.2-1)
[2024-07-16 02:17] VITALS: BMI 22.0
[2024-07-16] MEDS: MECLIZINE HCL 25 MG TABLET (FP) PO SCH (06:35)
[2024-07-16] MEDS: ASPIRIN 325 MG ENTERIC COATED TABLET (FP) PO ONE (06:35)
[2024-07-16 07:44] LABS: HEMATOCRIT 39.4 % (35.4-49); HEMOGLOBIN 13.2 GM/dL (11.7-16.9); MCH 31.2 pg (25.7-33.7); MCHC 33.6 g/dl (32.0-35.9); MEAN CELL VOLUME 92.8 fl (80-96); MEAN PLT VOLUME 7.6 fl (7.5-11.1); PLATELET COUNT 227 10^3/uL (134-434); RBC 4.24 M/mm3 (4.00-5.60); RDW 13.8 % (11.9-15.9); WHITE BLOOD COUNT 5.1 K/mm3 (4.0-10.0)
[2024-07-16 08:11] LABS: POTASSIUM 4.2 mmol/L (3.5-5.1)
[2024-07-16 08:18] LABS: CHOLESTEROL 191 mg/dL (50-200)
[2024-07-16 08:19] LABS: HDL CHOLESTEROL 49 mg/dL (40-60); LDL CHOLESTEROL (ONLY SJRH) 117 mg/dL (5-100)
[2024-07-16 08:35] LABS: BLOOD UREA NITROGEN 16.4 mg/dL (7-18); CALCIUM 8.7 mg/dL (8.5-10.1)
[2024-07-16 08:36] LABS: ALBUMIN 3.1 g/dl (3.4-5.0); MAGNESIUM 2.1 mg/dL (1.8-2.4)
[2024-07-16 08:38] LABS: TOT PROT 5.7 g/dl (6.4-8.2)
[2024-07-16 08:39] LABS: CREATININE 0.8 mg/dL (0.55-1.3); PHOSPHOROUS 2.5 mg/dL (2.5-4.9)
[2024-07-16] MEDS: CARBAMIDE PEROXIDE 6.5% OTIC 15 ML BOTTLE AU SCH (12:22)
[2024-07-16 12:43] VITALS: BP 95/57; PULSE 90; RESP 16; TEMP 97.9
[2024-07-16] MEDS ORDERED: RIVAROXABAN 20 MG TABLET PO SCH (18:00)
[2024-07-17] MEDS ORDERED: ASPIRIN COATED 81 MG TABLET.EC PO SCH (10:00)
== END 2024-07-16 13:57 | disposition home or self-care (01) ==
LOC: JER 13:26 → UNDOADMOB 20:10 → JERBED 20:10 → OBSVTOIN 20:34 → INTOOBSV 20:34 → J4W 07-16 01:11 → JERBED 07-16 01:11 → J4W 07-16 09:30
PROVIDERS: ADMIT Internal Medicine; ATTEND Internal Medicine
PROC: 3E0337Z Introduction of Electrolytic and Water Balance Substance into Peripheral Vein, Percutaneous Approach (ICD-10-PCS; principal; 2024-07-16)
DX: H81.399 Other peripheral vertigo, unspecified ear (principal); R26.81 Unsteadiness on feet; I48.91 Unspecified atrial fibrillation; E11.9 Type 2 diabetes mellitus without complications
CPT/HCPCS: 36415; 70450-TC; 70496-TC; 70498-TC; 80053; 80061; 82550; 83036; 83735; 83880; 84100; 84484; 85025; 85027; 85610; 85730; 86850; 86900; 86901; 93005; 93010; 96360; 97116-GP; 97161-GP; 99285-25; G0378